=== PATIENT | male | born 1930 | race Caucasian/White ===

== ENCOUNTER 2016-11-20 10:34 | Emergency (ER) | payer MEDICARE, MEDICAID ==
[~2016-11-20] VITALS: Ht 185.4 cm; Wt 68.0 kg
[~2016-11-20 10:34] MED LIST: ALP15OS EACHEYE; LISI2.5T47 PO; SOLI5TAB6 PO; TAMS0.4C36 PO
[2016-11-20 10:50] VITALS: BP 144/77
[2016-11-20 11:00] LABS: Basophils # (auto) 0 uL; Basophils % (auto) 0.3 % (0.0-2.0); CONDITION Y; Eosinophils # (auto) 0 uL; Eosinophils % (auto) 0.7 % (0.0-7.0); Hematocrit 38.5 % (41.0-53.0); Hemoglobin 12.8 g/dL (13.5-17.5); Lymphocytes # (auto) 1.6 uL; Lymphocytes % (auto) 26.5 % (10.0-50.0); Mean Corpuscular Hemoglobin 29.9 pg (28.0-32.0); Mean Corpuscular Hgb Conc. 33.3 g/dL (32.0-36.0); Mean Corpuscular Volume 89.8 fL (80.0-100.0); Mean Platelet Volume 7.4 fL (7.4-10.4); Monocytes # (auto) 0.5 uL; Monocytes % (auto) 8.7 % (0.0-12.0); Neutrophils # (auto) 3.9 uL; Neutrophils % (auto) 63.8 % (37.0-80.0); Platelet Count (auto) 328 10^3/uL (140-450); White Blood Cell 6.2 10^3/uL (4.4-10.8)
[2016-11-20 11:15] LABS: Anion Gap 8 (5-15); BUN/Creatinine Ratio 22.1; Blood Urea Nitrogen 23 mg/dL (7-18); Calcium 8.6 mg/dL (8.5-10.1); Carbon Dioxide 26 mmol/L (21-32); Chloride 107 mmol/L (98-107); GFR African American 87 mL/min; GFR Non-African American 72 mL/min; Glucose 278 mg/dL (74-106); Magnesium 1.5 mg/dL (1.6-2.6); Potassium 5.1 mmol/L (3.5-5.1); Sodium 141 mmol/L (136-145)
[2016-11-20 11:21] LABS: Bilirubin, Total 0.2 mg/dL (0.2-1.0); Total Protein 7.6 g/dL (6.4-8.2)
[2016-11-20 11:26] LABS: Alkaline Phosphatase 100 U/L (45-117); Aspartate Aminotransferase 8 U/L (15-37)
== END 2016-11-20 16:56 | disposition left against medical advice (07) ==
LOC: EDBD 10:34 → EDUNIT# 10:34 → ER 10:36
DX: R07.9 Chest pain, unspecified (principal); Z53.21 Procedure and treatment not carried out due to patient leaving prior to being seen by health care provider
CPT/HCPCS: 36415; 80053; 83735; 84484; 85025; 93005